=== PATIENT | female | born 1985 | race Caucasian/White ===

== ENCOUNTER 2020-03-09 08:42 | Emergency (ER) | payer OTHER ==
[~2020-03-09 08:42] MED LIST: COLACE 100MG C100 MG PO; IBUPROFEN600 MG PO; LORTAB 5-325 M1 EACH PO; PNV PRENATAL P1 EACH PO
[2020-03-09 10:15] LABS: RED BLOOD COUNT 4.87 M/UL (4.00-5.10); WHITE BLOOD COUNT 8.9 K/UL (4.5-11.0)
[2020-03-09 10:40] LABS: BUN/CREATININE RATIO 8 (0-10)
[2020-03-09] MEDS ORDERED: ZOFRAN4 MG PO (14:24)
[2020-03-10 12:14] LABS: HBSAG SCREEN Negative (Negative); HEP A AB, IGM Negative (Negative); HEP B CORE AB, IGM Negative (Negative); HEP C VIRUS AB 0.1 (0.0-0.9)
== END 2020-03-09 14:35 | disposition home or self-care (01) ==
LOC: ER1 08:42
PROVIDERS: Physician Assistant
DX: K80.20 Calculus of gallbladder without cholecystitis without obstruction (principal); B17.9 Acute viral hepatitis, unspecified; R74.01 Elevation of levels of liver transaminase levels; F17.200 Nicotine dependence, unspecified, uncomplicated; Z98.51 Tubal ligation status; Z88.0 Allergy status to penicillin; Z88.1 Allergy status to other antibiotic agents
CPT/HCPCS: 76705; 80053; 80074; 80307; 81001; 82150; 83690; 84703; 85025; 85610; 96374; 96375; 99284; J2270; J2405; Q9967

== ENCOUNTER → 2020-03-24 | Outpatient (CLI) | payer OTHER ==
[~2020-03-24] MED LIST changes: +ZOFRAN4 MG PO
== END ==
LOC: MRI 08:08
DX: K80.10 Calculus of gallbladder with chronic cholecystitis without obstruction (principal); R93.2 Abnormal findings on diagnostic imaging of liver and biliary tract
CPT/HCPCS: 74181